=== PATIENT | female | born 1935 | race Caucasian/White ===

== ENCOUNTER 2018-06-02 17:38 | Inpatient (IN) ==
[2018-06-02 18:46] LABS: BASO# 0.04 X1000 (0.0-0.2); BASO% 0.4 % (0.0-0.8); EOS% 1.1 % (0.0-10.0); HEMOGLOBIN 11.5 g/dL (12.0-16.0); IMM GRAN# 0.03 X1000 (0.0-0.04); IMM GRAN% 0.3 % (0.0-0.5); LYMPH# 2.39 X1000 (1.2-3.4); LYMPH% 26.4 % (20.5-51.1); MCH 30.6 PG (27-31); MCHC 31.9 g/dL (33-37); MCV 95.7 FL (81-99); MONO# 0.57 X1000 (0.11-0.59); MONO% 6.3 % (1.7-9.3); MPV 10.3 FL (7.4-10.4); NEUT# 5.91 X1000 (1.4-6.5); NEUT% 65.5 % (42.2-75.2); PLT 295 X1000 (130-400); RBC 3.76 XMIL (4.2-5.4); RDW 14.9 % (11.5-14.5); WBC 9.04 X1000 (4.8-10.8)
--- NOTE | 2018-06-02 19:00 | PROVIDER DOCUMENTATION ---
HPI-Neurological Disorder - General Chief Complaint: Altered Mental Status Stated Complaint: HIGH BP / CONFUSED Time Seen by Provider: 06/02/18 18:50 Source: patient, family Allergies/Adverse Reactions: Patient Allergies Allergy/AdvReac Type Severity Reaction Status Date / Time No Known Allergies Allergy Verified 06/02/18 17:59 Home Medications: Home Medication List Medication Instructions Recorded Confirmed Last Taken Type Tramadol HCl 50 mg PO PRN PRN 10/09/12 06/02/18 10/03/12 History Atenolol [Tenormin] 25 mg PO DAILY 06/02/18 06/02/18 Unknown History Levothyroxine Sodium 1 tab PO DAILY 06/02/18 06/02/18 Unknown History Losartan/Hctz [Hyzaar 100/12.5 mg 1 tab PO DAILY 06/02/18 06/02/18 Unknown History Tab] - History of Present Illness-Neuro Nature of Presenting Problem: hypertensive thyroid replacement last seen normal yesterday. home health nurse says was confused using tv changer for telephone mistaking people this was first noticed at 3;30. Headache Location: reports: other (none) Severity: reports: mild Onset/Duration: reports: 1-3 hours ago Timing: reports: still present Context: reports: impaired speech Character of Altered Mental Status: reports: confused Any recent trauma/injury?: reports: none Character of Deficits: reports: impaired speech New weakness or altered sensation location:: reports: none Cognitive Baseline: alert but confused Gait Baseline: walks without assistance Associated Symptoms: reports: slurred speech. denies: headache, fever/chills, nausea Similar Symptoms Previously?: No Recently seen or treated by another doctor?: No Review of Systems - Adult - REVIEW OF SYSTEMS - ADULT Constitutional: reports: no symptoms reported. denies: chills, fever, night sweats Eyes: reports: no symptoms reported Ears, Nose, Mouth & Throat: reports: no symptoms reported Cardiovascular: reports: no symptoms reported Respiratory: reports: no symptoms reported Gastrointestinal: reports: no symptoms reported Genitourinary: reports: no symptoms reported Musculoskeletal: reports: no symptoms reported Integumentary: reports: no symptoms reported Neurological: reports: slurred speech Endocrine: reports: no symptoms reported Hematologic/Lymphatic: reports: no symptoms reported Allergic/Immunologic: reports: no symptoms reported Past History - Adult - PAST MEDICAL HISTORY-ADULT Review of Records: reports: Nursing Assessment Review, Medications Reviewed, Social history reviewed & non-contributory. Major Childhood Illnesses: reports: denies history Cardiovascular: reports: HTN. denies: CAD, [place] Respiratory: reports: denies history Gastrointestinal: reports: denies history Obstetrical/Gynecological: reports: denies history Genitourinary: reports: denies history Musculoskeletal: reports: denies history Hand Dominance: Right Handed Neurological: reports: denies history. denies: CVA Psychiatric: reports: denies history Endocrine/Immune: reports: denies history Other Conditions: reports: denies history Physical Exam- Neurological - Physical Exam-Neuro Initial Vital Signs Reviewed: Yes General Appearance: appears well, alert, no apparent distress Eye Exam: bilateral eye: normal inspection, PERRL, EOMI HENMT: normocephalic/atraumatic, TMs normal Head Injury: no evidence of injury Neck: supple, carotid bruit Respiratory: lungs clear Cardiovascular: regular rate, rhythm Abdominal Exam: non tender, soft Lymphatic: no adenopathy Peripheral Pulses: dorsalis-pedis (R): 1+, dorsalis-pedis (L): 1+ Extremity: normal range of motion propagation manager Exam: abnormal speech Coordination/Gait: normal finger to nose Motor/Sensory: no motor deficit Neurologic: propagation manager II-XII nml as tested, grossly normal, no motor/sensory deficits . negative: abnormal cerebellar tests, abnormal propagation manager II-XII, aphasia, EOM palsy , facial droop, focal weakness, motor weakness, sensory deficit Integumentary: normal color, normal turgor, warm/dry. negative: diaphoresis Psych/Mental Status: normal mood/affect, normal thought content, oriented x 3, other (oriented x 3 but this evening confused a neice for a granddaughter and tried to use TV remote as a phone) Progress - PLAN OF CARE/RESULTS Progress/Plan/Lab Results: Vital Signs - 8 hr 06/02/18 17:44 06/02/18 18:05 06/02/18 18:21 Temperature 99.1 F Pulse Rate 56 L 57 L 59 L Respiratory Rate 18 16 20 Blood Pressure 152/102 212/81 187/69 O2 Sat by Pulse Oximetry 94 L 95 06/02/18 18:30 06/02/18 19:00 Temperature Pulse Rate 54 L 58 L Respiratory Rate 22 17 Blood Pressure 187/68 188/63 O2 Sat by Pulse Oximetry 94 L 94 L Laboratory Results - last 24 hr 06/02/18 06/02/18 06/02/18 18:21 18:30 18:30 WBC 9.04 RBC 3.76 L Hgb 11.5 L Hct 36.0 L MCV 95.7 MCH 30.6 MCHC 31.9 L RDW Std Deviation 14.9 H Plt Count 295 MPV 10.3 Immature Gran % (Auto) 0.3 Neut % (Auto) 65.5 Lymph % (Auto) 26.4 [place] % (Auto) 6.3 Eos % (Auto) 1.1 Baso % (Auto) 0.4 Immature Gran # (Auto) 0.03 Neut # (Auto) 5.91 Lymph # (Auto) 2.39 [place] # (Auto) 0.57 Eos # (Auto) 0.10 Baso # (Auto) 0.04 Sodium 140 Potassium 4.8 Chloride 105 Carbon Dioxide 22 L Anion Gap 13 BUN 37 H Creatinine 1.8 H Estimated GFR/1.73 m2 27 BUN/Creatinine Ratio 21 Glucose 106 H POC Glucose 125 H Calculated Osmolality 289 Calcium 10.9 H Total Bilirubin 0.30 AST 34 H ALT 19 Alkaline Phosphatase 64 Creatine Kinase Troponin T Total Protein 8.4 H Albumin 4.2 Globulin 4.0 Albumin/Globulin Ratio 1.0 Urine Source Urine Color Urine Clarity Urine pH Ur Specific [place] Urine Protein Urine Ketones Urine Blood Urine Nitrite Urine Bilirubin Urine Urobilinogen Urine Microscopic RBC Urine WBC Urine Microscopic WBC Ur Epithelial Cells Urine Crystals Urine Bacteria Urine Casts Urine Yeast Urine Glucose 06/02/18 06/02/18 06/02/18 18:30 18:30 19:54 WBC RBC Hgb Hct MCV MCH MCHC RDW Std Deviation Plt Count MPV Immature Gran % (Auto) Neut % (Auto) Lymph % (Auto) [place] % (Auto) Eos % (Auto) Baso % (Auto) Immature Gran # (Auto) Neut # (Auto) Lymph # (Auto) [place] # (Auto) Eos # (Auto) Baso # (Auto) Sodium Potassium Chloride Carbon Dioxide Anion Gap BUN Creatinine Estimated GFR/1.73 m2 BUN/Creatinine Ratio Glucose POC Glucose Calculated Osmolality Calcium Total Bilirubin AST ALT Alkaline Phosphatase Creatine Kinase 164 Troponin T 0.014 Total Protein Albumin Globulin Albumin/Globulin Ratio Urine Source CATH Urine Color YELLOW Urine Clarity SL. CLOUDY A Urine pH 5.0 Ur Specific [place] 1.015 Urine Protein 1+(30 mg/dL) A Urine Ketones NEGATIVE Urine Blood 2+ A Urine Nitrite NEGATIVE Urine Bilirubin NEGATIVE Urine Urobilinogen NORMAL Urine Microscopic RBC 20-40 A Urine WBC 2+ A Urine Microscopic WBC TNTC A Ur Epithelial Cells <10 Urine Crystals NONE SEEN Urine Bacteria 1+ Urine Casts NONE SEEN Urine Yeast NONE SEEN Urine Glucose NEGATIVE Orders Category Date Time Status Cardiac Monitoring DIRECTED Care 06/02/18 18:09 Active Nursing- Obtain EKG once Care 06/02/18 18:11 Active Saline Loc NOW Care 06/02/18 18:09 Active CHEST-2 VIEWS [RAD] Stat Exams 06/02/18 19:[address] HEAD W/O CONTRAST [CT] Stat Exams 06/02/18 19:07 Completed BLOOD CULTURE [BLDCUL] Stat Lab 06/02/18 20:19 Ordered CBC WITH DIFF [HEME] Stat Lab 06/02/18 18:30 Completed CK PROFILE [SP CHEM] Stat Lab 06/02/18 18:30 Completed CMP [COMPREHENSIVE METABOLIC PANEL] [CHEM] Stat Lab 06/02/18 18:30 Completed TROPONIN T Stat Lab 06/02/18 18:30 Completed URINE CULTURE [RM] Routine Lab 06/02/18 20:18 Ordered URINE CULTURE [RM] Routine Lab 06/02/18 20:20 Ordered ua [URINALYSIS PL W/POSS RFLX CULT] [URINALYSIS] Stat Lab 06/02/18 19:54 Completed 0.9% Sodium Chloride Inj [Ns] 500 ml Med 06/02/18 19:31 Discontinued IV 999 mls/hr CefTRIAXONE [Rocephin] 1 gm Med 06/02/18 20:19 Discontinued 0.9% Sodium Chloride Inj [Ns] 50 ml IV NOW EKG [EKG] Routine Ther 06/02/18 19:06 Ordered Result Diagrams: 06/02/18 18:30 06/02/18 18:30 - REASSESSMENT Reassessment #1 Time Reassessed: 19:28 Status: improving (note lab, dehydration. pt minimally disoriented, no focal weakness, no distress. slurred speech has cleared per family members.) Reassessment #2 Time Reassessed: 20:45 Status: unchanged (still alert, still mild trouble with her own date of , no slurred speech. discusseion with radilogist ; left frontal-temporal late acute to sub-acute appearing ischemic stroke. these finding also discussed w/ Dr Loving and pt and grabiely: admit) - XRAY 1 XRAY Study: Chest Impression: See EMR Report Comparison with other Films: no changes - CT/MRI 1 CT Study: Head Impression: See EMR Report Comparison with other Films: changes noted Departure - Departure Date of Disposition Decision: 06/02/18 Time of Disposition Decision: 20:28 DIAGNOSIS: Altered mental state, Dehydration, UTI (urinary tract infection), Ischemic stroke of frontal lobe Disposition: ADMITTED INPATIENT 09 Certified Medical Emergency: Emergent Condition: Stable Referrals and Follow-Ups: Rod Alberts MD [Primary Care Provider] - - Critical Care Note This patient required my direct & personal management of CC.: Yes Total Time (mins): 27 (talked to radiaologist , then admitting dr ting Quezada ) Critical Care Statement: This patient required my direct personal management to treat or rule out processes, the absence of which, could potentiallly result in sudden, clinically significant life or limb threatening deterioration. Attestation - Physician/ LENA Attestation Patient care was provided by Advanced Practice Provider:: No The physician spent face to face time with patient:: Yes Advanced Practice Provider documentation review:: Supervising physician onsite and consulted in the evaluation and care of this patient. The physician did have a face to face encounter with the patient. - NIH Stroke Scale NIH Type: Initial Evaluation Level of Consciousness: 0-Alert LOC Questions (ask month and age): 1-Answers One Correctly LOC Commands (ask to open & close eyes;make a fist, let go): 0-Obeys Both Correctly Best Gaze (horizontal eye movement): 0-Normal Visual (use finger movement, counting or visual threat): 0-No Visual Loss Facial Palsy (show teeth or raise eyebrows & close eyes tght: 0-Symmetrical Movement Motor Function-left arm: 0-Normal Motor Function-right arm: 0-Normal Motor Function-left le-Normal Motor Function-right le-Normal Limb Ataxia(miusfa-gkmm-bdbnio, or heel to little): 0-No Ataxia Sensory(pin prick to face,arms,trunk,legs-compare side/side): 0-No Ataxia Best Language(name item/read sentence.Ex-Down to Earth): 0-No Aphasia Dysarthria(Pt read words or say words Ex.Mama,Tip-Top,Thanks: 0-Normal Articulation Extinction and Inattention: 0-Normal
[2018-06-02 19:05] LABS: ALBUMIN 4.2 g/dL (3.5-5.0); CALCIUM 10.9 mg/dL (8.8-10.2); CREATININE 1.8 mg/dL (0.5-0.9); POTASSIUM 4.8 mmol/L (3.5-5.1); TOTAL BILIRUBIN 0.3 mg/dL (0.20-1.00); TOTAL PROTEIN 8.4 g/dL (6.3-8.3)
--- NOTE | 2018-06-02 19:05 | ED EKG INTERP ---
This chart was entered by Eryn Singleton Scribe, acting as scribe for Joey Caballero MD. EKG Interpretation - EKG Time of EKG reading by physician:: 18:15 EKG Read and Signed by:: Joey Caballero EKG Interpretation (*Must complete 3 of following elements*): Normal Rate: 58 (borderline ekg ) Rhythm: Sinus bradycardia QRS: LVH (min voltage criteria for LVH may be normal varaint.) This chart was documented by the indicated scribe, (Eryn Singleton Scribe) and accurately reflects the services I performed and decisions made by me, Joey Caballero MD, as attested by the provider's signature.
[2018-06-02] MEDS ORDERED: NS 500 ML IV ONE ×2 (19:31→20:50)
[2018-06-02 20:16] LABS: BILIRUBIN URINE NEGATIVE (NEGATIVE); BLOOD URINE 2+ (NEGATIVE); CLARITY SL. CLOUDY (CLEAR); COLOR YELLOW; GLUCOSE URINE NEGATIVE (NEGATIVE); KETONE URINE NEGATIVE (NEGATIVE); LEUKOCYTES URINE 2+ (NEGATIVE); NITRITE URINE NEGATIVE (NEGATIVE); PROTEIN URINE 1+(30 mg/dL) mg/dL (NEGATIVE); SP GRAVITY URINE 1.015; UROBILINOGEN URINE NORMAL
[2018-06-02 20:17] LABS: URINE WBC TNTC /HPF (<10)
[2018-06-02 20:18] LABS: URINE BACTERIA 1+ /HFP; URINE CAST NONE SEEN /LPF; URINE CRYSTAL NONE SEEN /HPF; URINE EPITHELIAL CELLS <10 /HPF (<10); URINE RBC 20-40 /HPF (<10); URINE SOURCE CATH; URINE YEAST NONE SEEN /HPF
[2018-06-02] MEDS ORDERED: ROCEPHIN 1 GM in NS 50 ML IV ONE (20:19)
--- NOTE | 2018-06-02 20:36 | Diag Imaging Result Doc PS360 ---
EXAM: CHEST-2 VIEWS - 06/02/2018 HISTORY: cough TECHNIQUE: Chest two views COMPARISON: 10/09/2012 FINDINGS: Heart size appears borderline enlarged. There is slight prominence of interstitial markings which appears to be chronic. There is no acute consolidation, pleural effusion, or pneumothorax identified. IMPRESSION: No evidence of acute disease. Electronically signed by Cordell Martínez 06/02/2018 8:34 PM
--- NOTE | 2018-06-02 20:42 | Diag Imaging Result Doc PS360 ---
EXAM: CT HEAD W/O CONTRAST - 06/02/2018 HISTORY: slurring speech TECHNIQUE: CT head without contrast COMPARISON: None. FINDINGS: There is a low-density area at the left frontal lobe which extends to the adjacent anterior temporal lobe. This measures approximately 5 cm in AP dimension by up to 3.3 cm in transverse dimension. This is compatible with infarct. This has relatively well demarcated margins. This may be late acute or subacute in age. There are chronic microvascular ischemic changes elsewhere. There is no evidence of intracranial hemorrhage, substantial mass effect on the ventricular system, or midline shift. There is a 4 mm calcification at the midline posterior pontomidbrain junction which is likely long-standing. There is no evidence of skull fracture. IMPRESSION: Approximately 5 x 3.3 cm infarct at left frontal lobe, extending to the adjacent anterior temporal lobe. This may be late acute or subacute in age. No hemorrhage. No substantial mass effect. This report was discussed with Dr. Da Silva on 06/02/2018 at 8:30 PM and was readback. This exam was performed using automated exposure control, adjustment of mA or kV according to patient size, and/or use of iterative reconstruction technique. Electronically signed by Cordell Martínez 06/02/2018 8:40 PM
[2018-06-02] MEDS ORDERED: ASPIRIN PO ONE (20:50)
[2018-06-02] MEDS ORDERED: TYLENOL PO PRN (21:18)
[2018-06-02] MEDS ORDERED: NS 1,000 ML IV ONE (21:18)
[2018-06-03 05:39] LABS: BASO# 0.04 X1000 (0.0-0.2); BASO% 0.5 % (0.0-0.8); EOS# 0.18 X1000 (0.0-0.7); EOS% 2.4 % (0.0-10.0); HEMATOCRIT 32.6 % (37.0-47.0); HEMOGLOBIN 10.1 g/dL (12.0-16.0); IMM GRAN# 0.01 X1000 (0.0-0.04); IMM GRAN% 0.1 % (0.0-0.5); LYMPH# 2.33 X1000 (1.2-3.4); LYMPH% 31.5 % (20.5-51.1); MCH 30.1 PG (27-31); MONO# 0.58 X1000 (0.11-0.59); MONO% 7.8 % (1.7-9.3); MPV 10.1 FL (7.4-10.4); NEUT# 4.25 X1000 (1.4-6.5); NEUT% 57.7 % (42.2-75.2); PLT 246 X1000 (130-400); RBC 3.36 XMIL (4.2-5.4); RDW 14.6 % (11.5-14.5); WBC 7.39 X1000 (4.8-10.8)
[2018-06-03 06:07] LABS: CALCIUM 9.6 mg/dL (8.8-10.2); CREATININE 1.5 mg/dL (0.5-0.9); POTASSIUM 4.2 mmol/L (3.5-5.1)
--- NOTE | 2018-06-03 06:47 | EKG Report ---
Test Performed on : 06/02/2018 6:15:28 PM Test Reason : emboli Blood Pressure : / mmHG Vent. Rate : 058 BPM Atrial Rate : 058 BPM P-R Int : 176 ms QRS Dur : 088 ms QT Int : 434 ms P-R-T Axes : 007 -11 026 degrees QTc Int : 426 ms Sinus bradycardia. Minimal voltage criteria for LVH, may be normal variant Borderline ECG When compared with ECG of 09-OCT-2012 10:07, Questionable change in QRS axis Nonspecific T wave abnormality now evident in Anterior leads Unconfirmed Result
[2018-06-03] MEDS: NS 1,000 ML IV SCH ×2 (07:27→11:35)
[2018-06-03] MEDS ORDERED: TENORMIN PO SCH (09:00)
[2018-06-03] MEDS ORDERED: COZAAR PO SCH (09:00)
[2018-06-03] MEDS: SYNTHROID PO SCH (09:44)
[2018-06-03] MEDS: ASPIRIN PO SCH (09:44)
--- NOTE | 2018-06-03 10:19 | HISTORY AND PHYSICAL ---
PRIMARY CARE PHYSICIAN: Dr. Alberts. CHIEF COMPLAINT: She was found by home health nurse yesterday with confusion. She was using her TV remote control as the telephone, mistaking people's names in the home. This was first noticed around 3:30 p.m. yesterday. She arrived to the emergency room at 6:50 p.m. HISTORY OF PRESENTING ILLNESS: This is an 83-year-old female, who presents to [facility] after her home health nurse noted during her visit yesterday that she had increased confusion, was using her TV remote control as a telephone, was mistaking people's names in the home that were present. This was first noticed around 3:30 p.m. yesterday. She arrived to the emergency room around 6:50 p.m. last night. When she arrived, her blood pressure was 152/102. Approximately 20 minutes later, it went up to 212/81. Her laboratory data showed a BUN of 37, creatinine 1.8. Her urinalysis showed negative nitrites, 2+ white blood cells, 1+ bacteria. We did a chest x-ray that showed no evidence of acute disease. CT of the head showed an approximately 5 x 3.3 cm infarct at the left frontal lobe extending to the adjacent anterior temporal lobe that may be late acute or subacute in age. So, she was admitted for further evaluation and treatment. PAST MEDICAL HISTORY: Hypertension, hypothyroidism, and colon cancer. PAST SURGICAL HISTORY: Colon resection. FAMILY HISTORY: Reviewed and noncontributory. SOCIAL HISTORY: She currently lives with her . Denies any tobacco, alcohol or illicit drug use. ALLERGIES: She has no known drug allergies. HOME MEDICATIONS: We will hold the following: Hyzaar 100/12.5 one p.o. daily, tramadol 50 mg p.o. p.r.n., and atenolol 25 mg p.o. daily. We will continue her levothyroxine at 75 mcg p.o. daily. LABORATORY DATA: Showed a white blood cell count of 9.004, hemoglobin 11.5, hematocrit 36, platelets 295. Sodium 140, potassium 4.8, chloride 105, CO2 22. BUN of 37, creatinine 1.8, glucose 106. Creatine kinase of 164, troponin 0.014. Repeat labs this morning did show a decrease in her creatinine down to 1.5. Urinalysis showed negative nitrites, 2+ white blood cells, 1+ bacteria. IMAGING STUDIES: Chest x-ray showed no acute disease. EKG showed sinus bradycardia at 58. CT of the head showed an approximately 5 x 3.3 cm infarct at the left frontal lobe extending to the adjacent anterior temporal lobe that may be late acute or subacute in age. No hemorrhage, no substantial mass effect. REVIEW OF SYSTEMS: She denied any fever, chills, blurred vision, dizziness, chest pain, coughing, shortness of breath. She denied any abdominal pain, constipation, diarrhea, burning or hurting with urination. PHYSICAL EXAMINATION: VITAL SIGNS: On arrival she had a temperature of 99.1 degrees, pulse 56, respirations 18, blood pressure 152/102, satting 94% on room air. Approximately 20 minutes after arrival, she had a blood pressure of 212/81, currently at 174/58, and we are going to allow for some permissive hypertension. GENERAL: This is an 83-year-old female who is sitting up in the bed, answers questions appropriately at this time, is alert and oriented to person, place, and time. HENT: Normocephalic, atraumatic. Normal ENT inspection. Oropharynx and nares are clear. EYES: Pupils are equal, round, reactive to light and accommodation. Extraocular movements are intact. NECK: Normal inspection, normal range of motion. LUNGS: Clear to auscultation bilaterally with equal lung expansion and chest wall movement. HEART: With regular rate and rhythm. No murmurs, rubs, or gallops. ABDOMEN: Soft, nontender, nondistended. Bowel sounds are present x4 quadrants. MUSCULOSKELETAL: She has 5/5 strength x4 extremities. NEUROLOGICAL: The cranial nerves 2-12 are grossly intact with no deficits noted at this time. ASSESSMENT: 1. An acute cerebrovascular accident. 2. Acute kidney injury. 3. Hypertension. 4. Urinary tract infection. PLAN: She was admitted to the medical unit at [place], placed on neuro checks q. 4 hours for 24 hours, telemetry, healthy heart diet. We are going to obtain an echocardiogram and a carotid ultrasound today. We will consult physical therapy. We will check a lipid profile today. Urine culture is pending. She will be on Rocephin 1 gram IV q. 24 hours, aspirin 81 mg p.o. daily. We are going to hold her antihypertensives at this time as we are going to allow for some permissive hypertension, and we added pravastatin 40 mg p.o. at bedtime. I spoke with Neurology, Dr. Lowry, who feels that her current treatment is appropriate, and he will follow and if needed we will consult him on Tuesday for further evaluation, but if she does well with physical therapy and all of her labs and tests results come back normal, she may possibly go home tomorrow afternoon, but further orders after being seen by attending. Dictated by VALERIE Renee for Farzaneh Medina MD cc: VALERIE Renee MD Micah A. Howard, MD
--- NOTE | 2018-06-03 15:06 | HISTORY AND PHYSICAL ---
ADDENDUM REPORT I saw the patient face to face and fully agree with the assessment and plan of nurse practitioner, Yana Galan. This is an 83-year-old female who has been admitted with acute cerebrovascular accident along with acute kidney injury and hypertension. She also has urinary tract infection. She will receive aspirin along with statin drug therapy and will place her on neuro checks q.4 hours. We will also consult Physical Therapy and give her IV fluids. Neurology has been contacted over the phone, and they agree with the plan which also includes echocardiogram and carotid Doppler ultrasound study. I had a discussion with family members, and they agree with the current treatment being provided here in the hospital. cc: Farzaneh Medina MD
[2018-06-03] MEDS ORDERED: ROCEPHIN 1 GM in NS 50 ML IV SCH (20:30)
[2018-06-03] MEDS ORDERED: PRAVACHOL PO SCH (21:00)
[2018-06-04] MEDS: NS 1,000 ML IV SCH (07:56)
[2018-06-04] MEDS ORDERED: COZAAR PO SCH (09:00)
[2018-06-04] MEDS: SYNTHROID PO SCH (09:18)
[2018-06-04] MEDS: ASPIRIN PO SCH (09:18)
--- NOTE | 2018-06-04 10:32 | Extremity Venous Study ---
EXAM: Carotid Ultrasound - 06/03/2018 HISTORY: CVA TECHNIQUE: Carotid flow studies COMPARISON: None. FINDINGS: There is substantial atherosclerotic plaquing at the carotid bulb and proximal internal carotid artery on the right. Maximal systolic velocity at the right carotid bulb is 335 cm/s. Maximum systolic velocity right internal carotid is 182 cm/s, and maximum diastolic velocity is 32 cm/s. The right internal carotid to common carotid systolic velocity ratio is 4.09. The flow velocities and ratio are consistent with 80-99% stenosis at the right internal carotid. The right vertebral demonstrates antegrade flow. There is mild atherosclerotic plaquing at the carotid bulb and proximal internal carotid on the left. Maximal systolic velocity in the left internal carotid is 119 cm/s, maximum diastolic velocity is 25 cm/s. The left internal to common carotid systolic velocity ratio is 1.19. The flow velocities and ratio are consistent with 0-39% stenosis at the left internal carotid. The left vertebral demonstrates antegrade flow. IMPRESSION: 80-99% stenosis at right internal carotid. 0-39% stenosis at left internal carotid. There is a note from the technologist which indicates that Dr. Medina is aware of the results. Electronically signed by Cordell Martínez 06/04/2018 10:29 AM
[2018-06-04] MEDS ORDERED: COZAAR PO ONE (11:00)
--- NOTE | 2018-06-04 11:22 | DISCHARGE SUMMARY ---
ADMISSION DATE: 06/02/2018 DISCHARGE DATE: 06/04/2018 DISCHARGE DIAGNOSES: 1. Acute cerebrovascular accident. 2. Acute kidney injury secondary to hydrochlorothiazide. 3. Hypertension. 4. Urinary tract infection. HOSPITAL COURSE: This is a very pleasant, 83-year-old, female, a patient of Dr. Rod Alberts, who presented to the [facility] Emergency Department with a complaint of having increased confusion of 1 day's duration. She was noticed to have elevated blood pressure and her CT scan showed approximately 5 x 3.3 cm infarct in the left frontal lobe after which she was admitted to the hospital for further evaluation and care. Her blood pressure has been somewhat elevated but we are slowly and gradually bring it down. She was found to have too numerous to count white blood cells in her urine as well and, therefore, she was treated with ceftriaxone intravenously for a urinary tract infection. We did obtain a carotid Doppler study that showed 80 to 99 percent stenosis in the right internal carotid artery. I discussed with Dr. Duncan from [facility] her condition, who wanted the patient to follow up at the office as an outpatient for further care including possible intervention. The patient's condition has improved and she has been having no deficits. Furthermore, her confusion has also improved and she really wants to go home. She will be discharged home today in stable condition. DISCHARGE MEDICATIONS: 1. Levofloxacin 500 mg orally once daily for 5 days. 2. Atorvastatin 40 mg orally once daily at bedtime. 3. Aspirin 81 mg orally once daily. 4. Atenolol 25 mg orally once daily. 5. Losartan 100 mg orally once daily. 6. Tramadol 50 mg orally once daily as needed for pain. 7. Levothyroxine 75 mcg orally once daily. FOLLOWUP: She will follow up with Dr. Rod Alberts in 1 to 2 weeks and follow up with Dr. Duncan in approximately 2 weeks. cc: MD Rod Atkins MD Robert C. Walker, MD
[2018-06-04 11:57] VITALS: BP 186/65
--- NOTE | 2018-06-04 16:19 | ECHO REPORT ---
ORDER DATE: 06/03/2018 INDICATION FOR THE STUDY: Hypertension, colon cancer, stroke. FINDINGS: 1. Findings the right atrium is moderately enlarged at 5.4 cm. 2. Moderate tricuspid regurgitation with RV systolic pressure of 48. 3. Normal RV size and systolic function. 4. Trace pulmonic insufficiency. 5. Severe left atrial enlargement. The volume index on that study is 81. 6. No mitral prolapse. Moderate mitral regurgitation. 7. Normal LV size, end-diastolic dimension of 4.6. Normal wall thicknesses with a posterior and interventricular septal thickness of 0.8 cm each. Normal LV systolic function. The estimated EF is 60% to 65% with normal wall motion. 8. The aortic valve opens well. It is trileaflet. No evidence of stenosis or insufficiency. 9. The aorta appears normal on visualized segments. 10. No pericardial effusion seen. cc: MD Yana Randolph CRNP
== END 2018-06-04 12:30 | disposition home or self-care (01) | DRG 65 ==
LOC: P.ED 17:38 → P.MEDSURG 17:39
PROVIDERS: ATTEND Internal Medicine
CPT/HCPCS: 70450; 71020; 71046; 80048; 80053; 80061; 81001; 82550; 82948; 83721; 84484; 85025; 87040; 87077; 87088; 87186; 93005; 93306; 93880; 96361; 96365; 99285; A9270; J0696; J7030; J7040; XXXXX

== ENCOUNTER 2019-05-21 14:07 | Inpatient (IN) ==
--- NOTE | 2019-05-21 16:26 | PROVIDER DOCUMENTATION ---
HPI-Abdominal Pain/GI Problem - General Chief Complaint: Abdominal Pain Stated Complaint: FEMALE Time Seen by Provider: 05/21/19 16:04 Source: patient Allergies/Adverse Reactions: Patient Allergies Allergy/AdvReac Type Severity Reaction Status Date / Time No Known Allergies Allergy Verified 06/02/18 17:59 Home Medications: Home Medication List Medication Instructions Recorded Confirmed Last Taken Type Tramadol HCl 50 mg PO PRN PRN 10/09/12 05/21/19 10/03/12 History Atenolol [Tenormin] 25 mg PO DAILY 06/02/18 05/21/19 Unknown History Levothyroxine Sodium 1 tab PO DAILY 06/02/18 05/21/19 Unknown History ATORVAstatin [Lipitor] 40 mg PO QHS #30 tab 06/04/18 05/21/19 Unknown Rx Aspirin 81 mg PO DAILY chewtab 06/04/18 05/21/19 Unknown Rx Losartan Potassium [Cozaar] 100 mg PO DAILY #30 tab 06/04/18 05/21/19 Unknown Rx - History of Present Illness-ABD Nature of Presenting Problems: Patient is an 84 yowf who complains of abdominal pain and distention x 1 week as well as n/v since this morning. Sent from pcp Dr. Alberts's office for possible bowel obstruction. Denies fever, melena, or any other complaints. Last BM: this morning Review of Systems - Adult - REVIEW OF SYSTEMS - ADULT Constitutional: reports: no symptoms reported Eyes: reports: no symptoms reported Ears, Nose, Mouth & Throat: reports: no symptoms reported Cardiovascular: reports: no symptoms reported Respiratory: reports: no symptoms reported Gastrointestinal: reports: see HPI Genitourinary: reports: no symptoms reported Musculoskeletal: reports: no symptoms reported Integumentary: reports: no symptoms reported Neurological: reports: no symptoms reported Psychiatric: reports: no symptoms reported Endocrine: reports: no symptoms reported Hematologic/Lymphatic: reports: no symptoms reported Allergic/Immunologic: reports: no symptoms reported All Other Systems: Reviewed and Negative Past History - Adult - PAST MEDICAL HISTORY-ADULT Review of Records: reports: Nursing Assessment Review, Medications Reviewed, Social history reviewed & non-contributory. Major Childhood Illnesses: reports: denies history Cardiovascular: reports: HTN. denies: CAD, MD Respiratory: reports: denies history Gastrointestinal: reports: denies history Obstetrical/Gynecological: reports: denies history Genitourinary: reports: denies history Musculoskeletal: reports: denies history Neurological: reports: CVA Psychiatric: reports: denies history Endocrine/Immune: reports: denies history Other Conditions: reports: denies history - PRIOR SURGERIES/PROCEDURES Surgical/Procedure History: reports: hysterectomy, other (carotid endarterectomy) - FAMILY HISTORY Family History: reviewed, not pertinent - SOCIAL HISTORY Smoking: non-smoker Physical Exam-General - PHYSICAL EXAM-ADULT Initial Vital Signs Reviewed: Yes - CONSTITUTIONAL General Appearance: alert, no apparent distress. negative: lethargic, slow to respond - EYES Eyes: PERRL/EOMI - HEAD, EARS, NOSE, MOUTH & THROAT HENMT: normocephalic/atraumatic, moist mucous membranes - NECK Neck: full range of motion, supple, normal inspection - RESPIRATORY Respiratory: chest non-tender, lungs clear, normal breath sounds, no pleuratic chest pain, no respiratory distress, no accessory muscle use - CARDIOVASCULAR Cardiovascular: normal peripheral pulses, regular rate, rhythm, no gallop, no murmur - GASTROINTESTINAL (ABDOMEN) Abdominal Exam: soft, abnormal bowel sounds (hypoactive), distended, tenderness (diffuse). negative: guarding - MUSCULOSKELETAL Back Exam: normal inspection Extremity: normal range of motion, non-tender, normal gait, normal inspection - SKIN Integumentary: normal color, warm/dry. negative: cyanosis, diaphoresis, jaundice, mottled, pallor - NEUROLOGIC Neurologic: grossly normal, no motor/sensory deficits - PSYCHIATRIC Psych/Mental Status: normal mood/affect, normal thought content, normal thought process, oriented x 3 Progress - PLAN OF CARE/RESULTS Progress/Plan/Lab Results: Vital Signs - 8 hr 05/21/19 14:11 Temperature 97.8 F Pulse Rate 74 Respiratory Rate 16 Blood Pressure 138/77 O2 Sat by Pulse Oximetry 95 Result Diagrams: 05/21/19 17:10 05/21/19 17:10 - REASSESSMENT Reassessment #1 Time Reassessed: 21:12 Status: other (Pain controlled. Pt in agreement with admission plan.) - EKG 1 Time of EKG reading by physician:: 17:40 EKG Read and Signed by:: Nicolasa Romero EKG Interpretation (*Must complete 3 of following elements*): Abnormal Rate: 74 Rhythm: NSR, anterior infarct, age undetermined QRS: normal - CT/MRI 1 CT Study: Abdomen, Pelvis ([facility] - [address], [address], [place] [address] [facility] - [address], [place] [address] Department of Imaging Patient: THAD FRAZIER Date: 05/21/19#: [id number] : 1935DM Status: REG [facility]#: [id number] Age/Sex: 84/FRoom/Bed: Loc: P.ED Ordering Physician: Walter Travis Family Physician: Rod Alberts MD Reason for Procedure: abdominal pain, n/v Signed EXAM: CT ABDOMEN/PELVIS W/O CONTRAST 05/21/2019 HISTORY: abdominal pain, n/v TECHNIQUE: This exam was performed using automated exposure control, adjustment of mA or kV according to patient size, and/or use of iterative reconstruction technique. COMMENT: HISTORY: Diffuse abdominal pain nausea and vomiting TECHNIQUE: Noncontrast study, abdomen and pelvis COMMENT: There is a large quantity of ascites with apparent implants in the omentum suggesting malignant ascites. There is diverticulosis particularly in the sigmoid colon without definite acute diverticulitis. There is no evidence of bowel obstruction. There is a large stone in the right renal pelvis measuri ng 2.3 cm in greatest dimension. There are lobulations in the left renal cortex which may be due to cysts. There is renal atrophy on the right. There are no apparent gallstones. There are numerous granulomata in the spleen. The spleen is not enlarged. There is rotoscoliosis of the lumbar spine with convexity to the left. There is what appears to be a cyst containing milk of calcium with a fat fluid level adjacent to the right femur just below the lesser trochanter. This is at least 4.8 cm in diameter. There is some air trapping in the lung bases. There is prominence of the central pulmonary vascularity. There is a small pleural effusion on the left. IMPRESSION: Malignant ascites. Other nonacute findings as described above. IMPRESSION: Electronically signed by Lewis Warren 05/21/2019 6:43 PM 05/21/191842 Interpreting Physician: Lweis Warren MD Dictated Date/Time: 05/21/191841 cc: Walter Travis; Rod Alberts MD) - CONSULTS/PCP/HOSPITALIST Notification #1 *Consult/PCP/Hospitalist*: Dr. Renteria Time Discussed: 19:45 Reason/Comments: admit-malignant ascites,UTI,abd pain, n/v Consult Disposition: Admit (Dr. Renteria requests that I speak with tidioute s upervisor at regarding possible transfer due to the fact that the pt may need GI consult. If no beds are availble at , md states pt can be admitted here tonight.) #2 Consult: Dr. De La Fuente Time Discussed: 21:11 Reason/Comments: admission- malignant ascites, UTI Consult Disposition: Admit Departure - Departure Date of Disposition Decision: 05/21/19 Time of Disposition Decision: 19:43 DIAGNOSIS: Renal insufficiency, Hyperkalemia Abdominal pain Qualifiers: Abdominal location: unspecified location Qualified Code(s): R10.9 - Unspecified abdominal pain UTI (urinary tract infection) Qualifiers: Urinary tract infection type: site unspecified Hematuria presence: without hematuria Qualified Code(s): N39.0 - Urinary tract infection, site not specified Ascites Qualifiers: Ascites type: malignant Qualified Code(s): R18.0 - Malignant ascites Disposition: ADMITTED INPATIENT 09 Certified Medical Emergency: Emergent Condition: Stable Referrals and Follow-Ups: Rod Alberts MD [Primary Care Provider] - - Critical Care Note This patient required my direct & personal management of CC.: No Attestation - Physician/ LENA Attestation Patient care was provided by Advanced Practice Provider:: Yes Advanced Practice Provider:: Walter Travis Advanced Practice Provider documentation review:: The Mid-level provider documentation, treatment plan and medical decision making was reviewed by the physician who agrees with all treatment and medical decision making by the MLP. The physician spent face to face time with patient:: No Advanced Practice Provider documentation review:: Supervising physician onsite and consulted in the evaluation and care of this patient. The physician did not have a face to face encounter with the patient.
[2019-05-21] MEDS ORDERED: NS 1,000 ML IV ONE (16:32)
[2019-05-21] MEDS ORDERED: ZOFRAN IV ONE (17:07)
[2019-05-21 17:20] LABS: URINE SOURCE CLEAN CATCH
[2019-05-21 17:37] LABS: BASO# 0.03 X1000 (0.0-0.2); BASO% 0.2 % (0.0-0.8); EOS# 0.03 X1000 (0.0-0.7); EOS% 0.2 % (0.0-10.0); HEMATOCRIT 36.1 % (37.0-47.0); HEMOGLOBIN 10.8 g/dL (12.0-16.0); IMM GRAN# 0.06 X1000 (0.0-0.04); IMM GRAN% 0.4 % (0.0-0.5); LYMPH# 2.27 X1000 (1.2-3.4); LYMPH% 15.6 % (20.5-51.1); MCH 28.1 PG (27-31); MCHC 29.9 g/dL (33-37); MONO% 6.2 % (1.7-9.3); MPV 9.7 FL (7.4-10.4); NEUT% 77.4 % (42.2-75.2); PLT 691 X1000 (130-400); RBC 3.84 XMIL (4.2-5.4); RDW 14.6 % (11.5-14.5); WBC 14.59 X1000 (4.8-10.8)
[2019-05-21 17:39] LABS: BILIRUBIN URINE NEGATIVE (NEGATIVE); BLOOD URINE SMALL (NEGATIVE); COLOR ORANGE; GLUCOSE URINE NEGATIVE (NEGATIVE); KETONE URINE NEGATIVE (NEGATIVE); LEUKOCYTES URINE LARGE (NEGATIVE); NITRITE URINE NEGATIVE (NEGATIVE); PROTEIN URINE 70 mg/dL (NEGATIVE); SP GRAVITY URINE 1.021; TURBIDITY URINE TURBID (CLEAR); UROBILINOGEN URINE NORMAL (NORMAL)
[2019-05-21 17:53] LABS: ALBUMIN 3.2 g/dL (3.5-5.0); CALCIUM 10.5 mg/dL (8.8-10.2); POTASSIUM 5.5 mmol/L (3.5-5.1); TOTAL BILIRUBIN 0.2 mg/dL (0.20-1.00); TOTAL PROTEIN 7.6 g/dL (6.3-8.3)
[2019-05-21 17:58] LABS: UR EPITHELIAL CELLS >10 /HPF (<10); URINE BACTERIA 4+ /HPF; URINE CASTS NONE SEEN; URINE CRYSTALS NONE SEEN; URINE RBC TNTC /HPF (<10); URINE YEAST NONE SEEN
--- NOTE | 2019-05-21 18:16 | EKG Report ---
Test Performed on : 05/21/2019 5:31:46 PM Test Reason : abd pain, n/v Blood Pressure : / mmHG Vent. Rate : 074 BPM Atrial Rate : 074 BPM P-R Int : 174 ms QRS Dur : 080 ms QT Int : 376 ms P-R-T Axes : 007 -19 026 degrees QTc Int : 417 ms Normal sinus rhythm. Anterior infarct , age undetermined Abnormal ECG When compared with ECG of 02-JUN-2018 18:15, No significant change was found Unconfirmed Result
--- NOTE | 2019-05-21 18:45 | Diag Imaging Result Doc PS360 ---
EXAM: CT ABDOMEN/PELVIS W/O CONTRAST 05/21/2019 HISTORY: abdominal pain, n/v TECHNIQUE: This exam was performed using automated exposure control, adjustment of mA or kV according to patient size, and/or use of iterative reconstruction technique. COMMENT: HISTORY: Diffuse abdominal pain nausea and vomiting TECHNIQUE: Noncontrast study, abdomen and pelvis COMMENT: There is a large quantity of ascites with apparent implants in the omentum suggesting malignant ascites. There is diverticulosis particularly in the sigmoid colon without definite acute diverticulitis. There is no evidence of bowel obstruction. There is a large stone in the right renal pelvis measuring 2.3 cm in greatest dimension. There are lobulations in the left renal cortex which may be due to cysts. There is renal atrophy on the right. There are no apparent gallstones. There are numerous granulomata in the spleen. The spleen is not enlarged. There is rotoscoliosis of the lumbar spine with convexity to the left. There is what appears to be a cyst containing milk of calcium with a fat fluid level adjacent to the right femur just below the lesser trochanter. This is at least 4.8 cm in diameter. There is some air trapping in the lung bases. There is prominence of the central pulmonary vascularity. There is a small pleural effusion on the left. IMPRESSION: Malignant ascites. Other nonacute findings as described above. IMPRESSION: Electronically signed by Lewis Warren 05/21/2019 6:43 PM
[2019-05-21] MEDS ORDERED: ROCEPHIN 1 GM in NS 50 ML IV ONE (18:54)
[2019-05-21] MEDS ORDERED: MORPHINE IV PRN (21:12)
[2019-05-21] MEDS ORDERED: ZOFRAN IV PRN (21:12)
[2019-05-21] MEDS ORDERED: NS 1,000 ML IV SCH (21:45)
[2019-05-22] MEDS ORDERED: COZAAR PO SCH (09:05)
[2019-05-22 10:34] LABS: MCH 27.6 PG (27-31); MCHC 29.4 g/dL (33-37); MCV 93.9 FL (81-99); MPV 9.4 FL (7.4-10.4); RBC 3.62 XMIL (4.2-5.4); RDW 14.6 % (11.5-14.5); WBC 13.12 X1000 (4.8-10.8)
[2019-05-22 10:42] LABS: ALBUMIN 2.6 g/dL (3.5-5.0); CALCIUM 9.9 mg/dL (8.8-10.2); CREATININE 1.8 mg/dL (0.5-0.9); MAGNESIUM 2.2 mg/dL (1.5-2.7); POTASSIUM 5.5 mmol/L (3.5-5.1); TOTAL BILIRUBIN 0.2 mg/dL (0.20-1.00); TOTAL PROTEIN 7.4 g/dL (6.3-8.3)
[2019-05-22] MEDS: TENORMIN PO SCH (12:16)
[2019-05-22] MEDS: SYNTHROID PO SCH (12:16)
[2019-05-22] MEDS: PRILOSEC PO SCH (12:16)
[2019-05-22] MEDS: NS 1,000 ML IV SCH (12:20)
--- NOTE | 2019-05-22 13:12 | Diag Imaging Result Doc PS360 ---
EXAM: US ABD PARACENTESIS W S/I HISTORY: acites TECHNIQUE: Ultrasound-guided paracentesis COMPARISON: None. FINDINGS: Prior to the procedure I discussed the risk and benefits with the patient. Primary risks include bleeding, infection, bowel injury, and liver injury. Questions were answered. Consent was given. The permit was signed. Ultrasound was used to localize the largest fluid collection in the right abdomen. This area was cleaned and draped in the normal fashion. Lidocaine was used as a local anesthetic. Needle and catheter were advanced into the fluid collection on the first attempt without difficulty. The needle was withdrawn. The catheter was hooked to suction. Approximately 4 L were withdrawn without difficulty. The catheter was then withdrawn. No immediate postprocedural complications. IMPRESSION: Successful ultrasound-guided paracentesis. Fluid similar to the laboratory for analysis. Electronically signed by Zachary Beltran 05/22/2019 1:10 PM
--- NOTE | 2019-05-22 14:28 | HISTORY AND PHYSICAL ---
PRIMARY CARE PHYSICIAN: Dr. Rod Alberts. CHIEF COMPLAINT: Abdominal pain and abdominal distention. HISTORY OF PRESENT ILLNESS: This is an 84-year-old female with a history of hypertension, hypothyroid, and non-Hodgkin lymphoma with treatment in 1986. She presents to the emergency room from her primary care physician's office complaining of abdominal discomfort, fullness, and nausea and vomiting. She states that she has had episodes of abdominal discomfort and abdominal distention over the last few months, although the last week this has been persistent. It seems that the distention is a little bit more than normal and her abdomen is firmer than normal. She stated that over the last few days that when she attempts to eat it feels like the food she swallows goes down and it just gets stuck and she has vomited the last 2 meals that she tried to eat. She had an in-office ultrasound done which was felt to reveal a bowel obstruction. Therefore, she was sent to the emergency room for further evaluation. CT of the abdomen and pelvis was performed in the emergency room which revealed malignant ascites. She was admitted for further evaluation and treatment. PAST MEDICAL HISTORY: Hypertension, hypothyroid, non-Hodgkin's lymphoma with treatment in 1986. PAST SURGICAL HISTORY: Hysterectomy, knee replacement, thyroidectomy, cataract removal, repair of strabismus in her left eye. SOCIAL HISTORY: She denies any alcohol, tobacco, or illicit drug use. ALLERGIES: No stated allergies. HOME MEDICATIONS: A list will be obtained by the nursing staff and once verified will review and restart as appropriate. REVIEW OF SYSTEMS: Discussed with the patient with pertinent positives stated in the HPI. She denied any syncope or dizziness, any chest pain or palpitations, any shortness of breath, cough, fever, chills, any night sweats, recent weight loss or weight gain, any diarrhea, any black or bloody vomitus or stools, any hematuria. PHYSICAL EXAMINATION: GENERAL: This is an 84-year-old female who is sitting up on the side of the bed in no distress. VITAL SIGNS: Blood pressure is 166/60, with a heart rate of 75, respirations 18, temperature is 97.8 degrees, with room air saturations 97 to 99%. HEENT: Head is normocephalic, atraumatic. Mucous membranes are dry. NECK: Supple with trachea midline. CARDIOVASCULAR: Regular rate and rhythm. S1 and S2 are appreciated. Calves are nontender bilateral with peripheral pulses palpable x4 extremities. PULMONARY: Breath sounds are clear with no increased work of breathing noted. Chest rises and falls symmetrically with respiration. Chest wall is nontender to palpation. GASTROINTESTINAL: Abdomen is distended, has diffuse tenderness, is firm, with hypoactive bowel sounds in all 4 quadrants. GENITOURINARY: No CVA or suprapubic tenderness. NEUROLOGIC: She is alert and oriented x3. SKIN: Warm and dry. LABS: WBC is 14.5, with hemoglobin 10.8, hematocrit 36.1, and platelets of 691,000. Sodium 138, potassium 5.5, BUN 41, creatinine 2, with a glucose of 92, calcium is 10.5. Lipase was 77. Urinalysis reveals too numerous to count red blood cells, greater than 10 epithelial cells, with 10 to 20 white blood cells. Urine culture and blood cultures are pending. ASSESSMENT: 1. Abdominal pain. 2. Ascites, malignant ascites per CT scan. 3. Hypertension. 4. Hypothyroid. 5. Leukocytosis. 6. Chronic kidney disease. 7. Hyperkalemia. 8. Possible urinary tract infection. PLAN: The patient has been admitted to the medical-surgical floor and placed on telemetry, which we will continue. She is n.p.o. pending an ultrasound-guided paracentesis per Radiology. Will start fluids at 100 an hour. We will continue Rocephin daily and further antibiotics will be culture driven. We will identify her home medications and continue these as is appropriate. We will check AFP, CA-125, CA-19-9, CEA, LDH. Will consult Dr. Ochoa. The patient will be transferred to [facility] when a bed is available for further following with Dr. Ochoa. Further treatments pending hospital course. Dictated by VALERIE Vanegas for Pj Segundo MD cc: VALERIE Vanegas MD
[2019-05-22] MEDS ORDERED: ROCEPHIN 1 GM in NS 50 ML IV SCH (19:00)
[2019-05-22] MEDS: ULTRAM PO PRN (20:14)
--- NOTE | 2019-05-22 22:20 | HISTORY AND PHYSICAL ---
ADDENDUM: The patient is seen and examined by myself. Full note dictated and discussed with nurse practitioner. She presented to the hospital with abdominal pain. Two weeks ago she was fine, but about 2 days ago she developed abdominal swelling and pain, and since that time it seems to have gotten worse. She was treated for non-Hodgkin lymphoma in 1986. She has had no other issues since. We are going to admit her to the hospital and ask Interventional Radiology to perform an ultrasound-guided paracentesis. Will talk with Hematology-Oncology. I am certainly concerned that this may be ovarian cancer as the source, and will follow closely. cc: Pj Segundo MD
[2019-05-23] MEDS: NS 1,000 ML IV SCH ×3 (01:35→13:26)
[2019-05-23 05:54] LABS: HEMATOCRIT 29.6 % (37.0-47.0); HEMOGLOBIN 8.6 g/dL (12.0-16.0); MCH 27.7 PG (27-31); MCHC 29.1 g/dL (33-37); MCV 95.2 FL (81-99); MPV 9.1 FL (7.4-10.4); RBC 3.11 XMIL (4.2-5.4); RDW 14.6 % (11.5-14.5); WBC 11.64 X1000 (4.8-10.8)
[2019-05-23 06:29] LABS: AGAP 13; ALBUMIN 1.8 g/dL (3.5-5.0); ALKALINE PHOSPHATASE 51 U/L (32-104); BUN 33 mg/dL (8-22); CALCIUM 8.3 mg/dL (8.8-10.2); CHLORIDE 108 mmol/L (98-107); COSMO 279; CREATININE 1.6 mg/dL (0.5-0.9); ESTIMATED GFR 31; GLUCOSE 88 mg/dL (70-104); GOT 13 U/L (10-30); GPT 6 U/L (10-36); POTASSIUM 4.9 mmol/L (3.5-5.1); SODIUM 136 mmol/L (136-145); TCO2 15 mmol/L (25-35); TOTAL BILIRUBIN < 0.15 mg/dL (0.20-1.00); TOTAL PROTEIN 5.7 g/dL (6.3-8.3)
[2019-05-23] MEDS: SYNTHROID PO SCH (06:39)
[2019-05-23] MEDS: PRILOSEC PO SCH ×2 (06:39→20:15)
[2019-05-23] MEDS: TENORMIN PO SCH (09:01)
[2019-05-23 10:51] LABS: BODY FLUID SOURCE PERITONEAL FLUID
[2019-05-23 12:28] LABS: WBC BF 213 /cumm
[2019-05-23 12:29] LABS: MONOS 21 %; POLYS 79 %
[2019-05-23] MEDS: MYLICON PO SCH ×3 (12:50→20:15)
[2019-05-23 15:12] LABS: ALBUMIN BODY FLUID 2.4 g/dL; AMYLASE BODY FLUID 34 U/L; TOTAL PROT BODY FLUID 5.2 g/dL
[2019-05-23] MEDS ORDERED: ZOFRAN PO PRN (16:52)
[2019-05-23] MEDS: KEFLEX PO SCH (20:15)
[2019-05-23] MEDS: ULTRAM PO PRN (20:19)
--- NOTE | 2019-05-23 21:59 | PROGRESS NOTE ---
DATE: 05/23/2019 SUBJECTIVE: The patient is a very pleasant, elderly 84-year-old female who is in no distress. OBJECTIVE: HEENT: Normocephalic. Neck is supple. CV: Regular rate. Chest clear. Abdomen soft. Extremities: Moves all extremities. ASSESSMENT: 1. Escherichia coli urinary tract infection. We will switch her to Keflex. 2. Malignant ascites. Certainly expect this is due to ovarian source. Her CA-125 is elevated. 3. Leukocytosis. 4. Hyperkalemia, resolved. PLAN: We will continue the patient in the hospital. We will discuss with Dr. Ochoa as well as her family and develop a plan of action. cc: Pj Segundo MD
[2019-05-24] MEDS: KEFLEX PO SCH ×2 (03:48→08:01)
[2019-05-24] MEDS: SYNTHROID PO SCH (06:23)
[2019-05-24] MEDS: PRILOSEC PO SCH (06:23)
[2019-05-24 07:40] VITALS: BP 132/59
[2019-05-24] MEDS: MYLICON PO SCH (08:01)
[2019-05-24] MEDS: TENORMIN PO SCH (08:01)
[2019-05-24] MEDS ORDERED: ZOFRAN ODT PO PRN (09:23)
--- NOTE | 2019-05-25 17:35 | DISCHARGE SUMMARY ---
ADMISSION DATE: 05/21/2019 DISCHARGE DATE: 05/24/2019 DISCHARGE DIAGNOSIS: 1. Ascites, malignant. Likely ovarian source. 2. Hypertension. 3. Hypothyroidism. 4. Chronic kidney disease. 5. Escherichia coli urinary tract infection. 6. Hyperkalemia, resolved. 7. Leukocytosis, improved. 8. History of non-Hodgkin's lymphoma in 1986. CONSULTATIONS: Dr. Ochoa via phone. PROCEDURES: Paracentesis. BRIEF HOSPITAL COURSE: The patient is a very pleasant 84-year-old female who presented to the hospital secondary to increased abdominal pain and ascites. She presented and was noted to have increased abdominal girth. We did undergo an ultrasound-guided paracentesis, as her CT showed most likely malignant ascites. Unfortunately, it does appear to be the case. Most likely this is ovarian source. We did discuss this with Ms. Lala as well as several of her children. DISPOSITION: Patient will be discharged. She will follow up outpatient with Dr. Ochoa. Appointment has already been set. She will continue Keflex 500 mg 3 times a day for a total of 7- day course. We did attempt to answer all questions. No other changes were made in her chronic home medications, diet or activity. Greater than 30 minutes was spent in total care. cc: Pj Segundo MD
== END 2019-05-24 10:40 | disposition home or self-care (01) | DRG 755 ==
LOC: P.ED 14:07 → EDIPHOLD 21:31 → SUATTDRO 21:31
PROVIDERS: ATTEND Family Medicine